=== PATIENT | male | born 1965 | race Caucasian/White ===

== ENCOUNTER 2023-10-30 14:08 | Inpatient (IN) | payer OTHER ==
[~2023-10-30] VITALS: Ht 177.8 cm; Wt 120.7 kg
[2023-10-30 14:41] LABS: BASOPHILS ABSOLUTE AUTO 0.07 K/mm3 (0.00-0.23); BASOPHILS PERCENT AUTO 1 % (0-2); EOSINOPHILS PERCENT AUTO 2 % (0-6); Hematocrit 48.6 % (37.0-53.0); Hemoglobin 16.1 g/dL (13.5-17.5); IMMATURE GRAN ABSOLUTE AUTO 0.04 K/mm3 (0.00-0.10); IMMATURE GRAN PERCENT AUTO 0 % (0-1); LYMPHOCYTES ABSOLUTE AUTO 1.95 K/mm3 (0.84-5.20); LYMPHOCYTES PERCENT AUTO 17 % (21-46); MONOCYTES ABSOLUTE AUTO 0.92 K/mm3 (0.16-1.47); MONOCYTES PERCENT AUTO 8 % (4-13); Mean Corpuscular HGB 30.1 pg (26.0-34.0); Mean Corpuscular HGB Conc 33.1 g/dL (31.5-36.5); Mean Corpuscular Volume 91 fL (80-100); NEUTROPHILS ABSOLUTE AUTO 8.52 K/mm3 (1.96-9.15); NEUTROPHILS PERCENT AUTO 73 % (41-73); Platelet Count 204 K/mm3 (150-400); RDW Coefficient Variation 13.9 % (11.7-14.2); RDW Standard Deviation 46.5 fL (35.1-46.3); Red Blood Cell Count 5.35 M/mm3 (4.30-5.90)
[2023-10-30 15:06] LABS: Albumin, Blood 3.8 g/dL (3.4-5.0); Bilirubin, Total 0.5 mg/dL (0.1-1.0); Bun/Creatinine Ratio 22.5 (12.0-20.0); Calcium, Blood 8.9 mg/dL (8.5-10.1); Creatinine, Blood 0.84 mg/dL (0.60-1.20); Globulin, Blood 3.7 g/dL (2.2-4.0); Potassium, Blood 4.1 mmol/L (3.5-5.5); Total Protein, Blood 7.5 g/dL (6.4-8.2)
[2023-10-30 16:30] LABS: Anti-Xa UFH, PHA Monitoring <0.10 IU/mL; International Normalized Ratio 0.99; Prothrombin Time Results 10.4 Sec (9.7-11.5)
--- NOTE | 2023-10-30 18:46 | NUR ---
REPORT RECIEVED FROM ER NURSE AT [id number].
[2023-10-30 19:35] VITALS: BP 121/71
[2023-10-30 20:58] VITALS: BP 127/75
[2023-10-30] MEDS ORDERED: JARDIANCE25 MG PO (22:03)
[2023-10-30] MEDS ORDERED: NEURONTIN300 MG PO (22:03)
[2023-10-30] MEDS ORDERED: Simvastatin40 MG PO (22:04)
[2023-10-30] MEDS ORDERED: METF500 PO (22:04)
[2023-10-30] MEDS ORDERED: LOSA25 PO (22:04)
[2023-10-30] MEDS ORDERED: HUMULIN N100 UNIT/3 SC (22:05)
[2023-10-30] MEDS ORDERED: HUMALOG KW100 UNIT/1 SC (22:07)
[2023-10-30 23:15] VITALS: BP 125/81
[2023-10-30 23:30] VITALS: BP 116/63
[2023-10-30 23:45] VITALS: BP 134/86
[2023-10-31] VITALS (13 sets, daily range): BP systolic 89–136; BP diastolic 58–80
[2023-10-31 03:39] LABS: BASOPHILS ABSOLUTE AUTO 0.04 K/mm3 (0.00-0.23); BASOPHILS PERCENT AUTO 0 % (0-2); EOSINOPHILS ABSOLUTE AUTO 0.14 K/mm3 (0.00-0.68); EOSINOPHILS PERCENT AUTO 1 % (0-6); Hemoglobin 14.9 g/dL (13.5-17.5); IMMATURE GRAN ABSOLUTE AUTO 0.03 K/mm3 (0.00-0.10); IMMATURE GRAN PERCENT AUTO 0 % (0-1); LYMPHOCYTES PERCENT AUTO 17 % (21-46); MONOCYTES ABSOLUTE AUTO 1.02 K/mm3 (0.16-1.47); MONOCYTES PERCENT AUTO 10 % (4-13); Mean Corpuscular HGB 30.8 pg (26.0-34.0); Mean Corpuscular HGB Conc 33.9 g/dL (31.5-36.5); Mean Corpuscular Volume 91 fL (80-100); Mean Platelet Volume 9.1 fL (9.1-12.4); NEUTROPHILS ABSOLUTE AUTO 7.39 K/mm3 (1.96-9.15); NEUTROPHILS PERCENT AUTO 72 % (41-73); Platelet Count 172 K/mm3 (150-400); RDW Coefficient Variation 13.9 % (11.7-14.2); RDW Standard Deviation 46.6 fL (35.1-46.3); Red Blood Cell Count 4.83 M/mm3 (4.30-5.90); White Blood Cell Count 10.32 K/mm3 (4.00-11.30)
[2023-10-31 04:07] LABS: Albumin, Blood 3.4 g/dL (3.4-5.0); Bilirubin, Total 0.7 mg/dL (0.1-1.0); Bun/Creatinine Ratio 21.8 (12.0-20.0); Calcium, Blood 8.6 mg/dL (8.5-10.1); Creatinine, Blood 0.69 mg/dL (0.60-1.20); Globulin, Blood 3.4 g/dL (2.2-4.0); Total Protein, Blood 6.8 g/dL (6.4-8.2)
--- NOTE | 2023-10-31 05:06 | NUR ---
SHIFT SUMMARY: ASSUMED PT CARE DIRECTLY AFTER BEING ADMITTED TO PCU RM 4. A&OX4. HEPRIN GTT INFUSING AT 15 WHEN TRANSFERED. S/O ATTENTIVE AT BEDSIDE, WILLING AND ABLE TO HELP WITH PT CARE. CHEST PAIN INCREASING FROM 1-3. DR. RISSA RESENDEZ, RECIEVED ORDER FOR NITRO PAST IN ADDITION TO NITRO SL TABS. HR SR IN 80'S. BP'S STABLE WITH MAP > 65. O2 SATS > 90% ON RA. DENIES SOB. ABLE TO STAND AT BESIDE AND VOID INTO URINAL. URINE CLEAR, TEA COLORED URINE. PT TAKEN OFF TO OR FOR ANGIO. RIGHT RADIAL SITE ON RETURN FROM ANGIO. PER REPORTS PT HAD NO INTERVENTIONS DONE DUE TO SEVERITY OF CONDITION, WILL NEED COBRA TRANSFER. PT AND S/O INFORMED OF THIS BY DR. ARNOLD. TR BAND RECOVERED, NO SWELLING/LEAKING/BRUISING/INDURATION NOTED. HEPRIN GTT RESTARTED AT [address] ARNOLD'S INSTRUCTIONS. PT RESTING IN BED. CALL LIGHT IN REACH. BED IN LOW POSITION. CALL LIGHT IN REACH.
--- NOTE | 2023-10-31 09:11 | NUR ---
AM NOTE: PATIENT ALERT AND ORIENTED X4. NEURO ASSESSMENT WNL. PATIENT STATES ABOUT 5 WEEKS AGO HE HAD A RIGHT ACHILLES TENDON REPAIR SURGERY AND IS STILL SLIGHLT SORE FROM THAT. MOVING IND IN BED. TELE SHOWING SR WITH HR 80-90'S. BP STABLE. 1-2/10 CHEST PAIN, IMPROVED FROM PRIOR DAY. DENIES ANY NEED FOR PAIN MEDICATIONS. DENIES PALPITATIONS. NO SIGNS OF EDEMA. HEPARIN GTT INFUSING PER EMAR. S/P ANGIOGRAM 10/30 WITH RIGHT RADIAL SITE. SITE WNL, NO SIGNS OF BLEEDING. REMAINS SOFT AND NONTENDER. TEGADERMA AND ARMBOARD IN PLACE. THIS RN REVIEWED RADIAL SITE PRECAUTIONS. ON ROOM AIR, LUNGS SOUNDING CLEAR. NO COUGH. DENIES SOB. COMPLAINS OF FEELING LIKE HE HAS A MILD FLU WITH BACK ACHES AND MILD CONGESTION. TEMP 99.3 THIS AM. EVEN AND UNLABORED RESPIRATIONS. BOWEL TONES PRESENT. EATING AND VOIDING WNL. DENIES ABDOMINAL PAIN/NAUSEA. SIG OTHER AT BEDSIDE. HEPARIN AND NS INFUSING PER EMAR. DENIES NEEDS AT THIS TIME. CALL LIGHT IN REACH.
--- NOTE | 2023-10-31 17:08 | NUR ---
TRANSFER TO [facility]. PATIENT LEFT UNIT AT THIS TIME. HEPARIN TO CONTINUE ON TRANSFER. NO ACUTE CHANGES. VITAL SIGNS REMAIN STABLE. PATIENT IS FREE OF CHEST PAIN. SIG OTHER UPDATED ON TRANSFER. ALL PERSONAL BELONGINGS BROUGHT WITH SIG OTHER. REPORT CALLED TO LYDIA JONES AT [facility] [phone]
== END 2023-10-31 17:15 | disposition short-term general hospital (02) | DRG 282 ==
LOC: ER 14:08 → PCU 17:00
PROVIDERS: Emergency Medicine; ADMIT Internal Medicine
PROC: B2111ZZ Fluoroscopy of Multiple Coronary Arteries using Low Osmolar Contrast (ICD-10-PCS; principal; 2023-10-30)
PROC: 4A023N7 Measurement of Cardiac Sampling and Pressure, Left Heart, Percutaneous Approach (ICD-10-PCS; 2023-10-30)
DX: I21.4 Non-ST elevation (NSTEMI) myocardial infarction (principal); I25.10 Atherosclerotic heart disease of native coronary artery without angina pectoris; I10 Essential (primary) hypertension; E78.5 Hyperlipidemia, unspecified; E11.40 Type 2 diabetes mellitus with diabetic neuropathy, unspecified; E11.43 Type 2 diabetes mellitus with diabetic autonomic (poly)neuropathy; K31.84 Gastroparesis; F17.210 Nicotine dependence, cigarettes, uncomplicated; I25.2 Old myocardial infarction; Z95.5 Presence of coronary angioplasty implant and graft; Z79.4 Long term (current) use of insulin; Z79.82 Long term (current) use of aspirin
CPT/HCPCS: 36415; 71045; 76937; 80053; 82947; 83690; 84484; 85025; 85520; 85610; 85730; 93005; 93010; 93306; 93454; 96365; 96366; 96375; 96376; 99152; 99153; 99291-25; A9270; C1769; C1887; C1894; J1644; J1815; J2250; J3010; J7030; J7050; Q9967